=== PATIENT | female | born 1955 | race Caucasian/White ===

== ENCOUNTER → 2018-11-24 | Outpatient (CLI) | payer MEDICARE, OTHER | LOC: M.RAD 10-22 16:00 | DX: M81.0 Age-related osteoporosis without current pathological fracture (principal); C50.311 Malignant neoplasm of lower-inner quadrant of right female breast; Z88.5 Allergy status to narcotic agent; Z88.1 Allergy status to other antibiotic agents; Z17.0 Estrogen receptor positive status [ER+] ==

== ENCOUNTER → 2020-10-16 | Outpatient (CLI) | payer MEDICARE, OTHER | LOC: M.RAD 13:30 | PROVIDERS: ATTEND Nurse Practitioner Family | DX: C50.311 Malignant neoplasm of lower-inner quadrant of right female breast (principal); M81.0 Age-related osteoporosis without current pathological fracture; Z17.0 Estrogen receptor positive status [ER+] ==